=== PATIENT | male | born 1940 | race Caucasian/White ===

== ENCOUNTER 2018-01-30 12:57 | Outpatient (CLI) | payer MEDICARE ==
--- NOTE | 2018-01-30 13:17 | RAD ---
CHEST PA AND LATERAL: History: 77-year-old male with history of dyspnea. FINDINGS: Mild hyperinflation. Biapical pleural thickening with some minimal increased linear and interstitial markings bilaterally. In the right base and infrahilar region, these markings appear to be somewhat m ore prominent and certainly could represent a small focus of pneumonia. IMPRESSION: Hyperinflation and chronic lung changes. Slightly more focally prominent linear and parenchymal lara es in the right infrahilar region raising concern for minimal right lower lobe pneumonia or pneumonit is. No old exams for comparison. POS: [facility]
== END 2018-01-30 12:58 | disposition home or self-care (01) ==
LOC: RAD 12:57
PROVIDERS: ATTEND Internal Medicine Pulmonary Disease
DX: R06.00 Dyspnea, unspecified (principal)
CPT/HCPCS: 71046

== ENCOUNTER 2018-02-28 12:52 | Outpatient (CLI) | payer MEDICARE ==
--- NOTE | 2018-02-28 14:51 | RAD ---
2 VIEW CHEST: Date: 02/28/18 INDICATION: Dyspnea. COMPARISON: 01/30/18. FINDINGS: Hyperexpansion again noted. Parenchymal opacity in the right lung base is again seen which could repr esent infiltrate, although this is similar to the prior study and may represent chronic parenchymal c hange. The upper lung gill remain clear. No evidence of vascular congestion or edema. Heart size up per normal and stable. Moderate aortic calcification again noted. IMPRESSION: Continued parenchymal opacity in the right lung base, not significantly changed from 01/30/18. There are changes of COPD again noted as described. POS: [facility]
== END 2018-02-28 12:53 | disposition home or self-care (01) ==
LOC: RAD 12:52
PROVIDERS: ATTEND Internal Medicine Pulmonary Disease
DX: R06.00 Dyspnea, unspecified (principal); R91.8 Other nonspecific abnormal finding of lung field
CPT/HCPCS: 71046

== ENCOUNTER 2018-07-23 14:55 | Emergency (ER) | payer MEDICARE ==
[2018-07-23 15:36] LABS: #Basophils 0.1 thou/uL (0.0-0.2); #Eosinphils 0.2 thou/uL (0.0-0.7); #Lymphocytes 1.7 thou/uL (1.20-3.40); #Monocytes 0.7 thou/uL (0.11-0.59); #Neutrophils 4.9 thou/uL (1.40-6.50); %Eosinophils 2.6 % (0.0-10.0); %Lymphocytes 22.8 % (21.0-51.0); %Monocytes 8.7 % (0.0-10.0); Mean Corpuscular HGB CONC 32.7 g/dL (32.0-36.0); Mean Corpuscular Hemoglobin 30.7 pg (27.0-31.0); Mean Corpuscular Volume 93.8 fL (78.0-98.0); Platelet Count 269 thou/uL (130-400); RBC Distribution Width 12.6 % (11.5-14.5); Red Blood Cell (RBC) Count 4.87 mill/uL (4.70-6.10); White Blood Cell (WBC) Count 7.6 thou/uL (4.8-10.8)
[2018-07-23 15:52] LABS: ALT (SGPT) 38 U/L (8-55); AST (SGOT) 24 U/L (5-34); Albumin 4.3 g/dL (3.4-4.8); Alkaline Phosphatase 75 U/L (40-150); Anion Gap 13 mmol/L (10-20); BUN (Urea Nitrogen) 26 mg/dL (8.4-25.7); Bilirubin, Total 0.5 mg/dL (0.2-1.2); Calc. Creatinine Clearance 0 mL/min (70-130); Calcium 9.8 mg/dL (7.8-10.44); Carbon Dioxide 23 mmol/L (23-31); Chloride 107 mmol/L (98-107); Estimated GFR-MDRD 59; Globulin 3.1 g/dL (2.4-3.5); Glucose 116 mg/dL (83-110); Potassium 4.3 mmol/L (3.5-5.1); Protein, Total 7.4 g/dL (5.8-8.1); Sodium 139 mmol/L (136-145)
[2018-07-23 15:55] LABS: CKMB 1.9 ng/mL (0-6.6); Troponin I Less than 0.010 ng/mL (< 0.028)
--- NOTE | 2018-07-23 16:14 | CT ---
CT HEAD WITH AND WITHOUT IV CONTRAST CT ARTERIOGRAM BRAIN WITH IV CONTRAST AND 3D MIP IMAGING 07/23/18 HISTORY: Altered mental status. Difficult speech. FINDINGS: No comparison. There is no acute intracranial hemorrhage or infarct. Mild chronic ischemic small vessel disease with in the periventricular white matter. There is no mass effect or shift of midline structures. No abnor mal areas of contrast enhancement. Good contrast flow throughout each cerebral arterial system. There is calcification in the carotid si phons. No focal stenosis or aneurysm. [place] of [place] is intact. IMPRESSION: No acute intracranial abnormalities are demonstrated. Atherosclerosis. No acute vascular abnormalities are demonstrated. POS: [facility]
== END 2018-07-23 16:47 | disposition home or self-care (01) ==
LOC: SCSER 14:55
DX: G45.9 Transient cerebral ischemic attack, unspecified (principal); I25.10 Atherosclerotic heart disease of native coronary artery without angina pectoris; I10 Essential (primary) hypertension; F32.9 Major depressive disorder, single episode, unspecified; Z87.891 Personal history of nicotine dependence; Z79.899 Other long term (current) drug therapy; Z79.82 Long term (current) use of aspirin
CPT/HCPCS: 70496; 80053; 82553; 84484; 85025; 93005

== ENCOUNTER 2019-06-13 15:23 | Emergency (ER) | payer MEDICARE ==
[2019-06-13] MEDS ORDERED: methylPREDNISolone Sod Succ/PF 125 MG/2 ML VIAL ONE (15:34)
[2019-06-13 15:57] LABS: #Basophils 0.1 thou/uL (0.0-0.2); #Eosinphils 0.1 thou/uL (0.0-0.7); #Lymphocytes 1.3 thou/uL (1.20-3.40); #Monocytes 0.9 thou/uL (0.11-0.59); #Neutrophils 7.1 thou/uL (1.40-6.50); %Basophils 1.1 % (0.0-1.0); %Eosinophils 1.2 % (0.0-10.0); %Neutrophils 74.8 % (42.0-75.0); Hemoglobin 16.1 g/dL (14.0-18.0); Mean Corpuscular HGB CONC 32.8 g/dL (32.0-36.0); Mean Corpuscular Hemoglobin 31.8 pg (27.0-31.0); Mean Platelet Volume 5.7 fL (7.4-10.4); Platelet Count 339 thou/uL (130-400); RBC Distribution Width 12.9 % (11.5-14.5); Red Blood Cell (RBC) Count 5.06 mill/uL (4.70-6.10); White Blood Cell (WBC) Count 9.4 thou/uL (4.8-10.8)
[2019-06-13 16:13] LABS: ALT (SGPT) 26 U/L (8-55); AST (SGOT) 21 U/L (5-34); Albumin 4.3 g/dL (3.4-4.8); Alkaline Phosphatase 79 U/L (40-110); Anion Gap 16 mmol/L (10-20); BUN (Urea Nitrogen) 17 mg/dL (8.4-25.7); Bilirubin, Total 0.7 mg/dL (0.2-1.2); CK (CPK) 87 U/L (30-200); Calc. Creatinine Clearance 0 mL/min (70-130); Calcium 9.7 mg/dL (7.8-10.44); Carbon Dioxide 23 mmol/L (23-31); Chloride 105 mmol/L (98-107); Estimated GFR-MDRD 68; Globulin 3.3 g/dL (2.4-3.5); Glucose 98 mg/dL (83-110); Potassium 4.8 mmol/L (3.5-5.1); Protein, Total 7.6 g/dL (5.8-8.1); Sodium 139 mmol/L (136-145)
--- NOTE | 2019-06-13 16:19 | RAD ---
Exam: Chest 2 views: HISTORY: Dyspnea COMPARISON: 05/05/2019 FINDINGS: Fairly extensive bilateral increased linear and interstitial markings with hyperinflation and chronic appearing blunting of the costophrenic angles evidence for extensive chronic lung disease. Heart size is within normal limits. No confluent pneumonia. IMPRESSION: Hyperinflation and chronic lung changes, stable. No significant new process. Atherosclerosis of the a nyla.
== END 2019-06-13 16:47 | disposition home or self-care (01) ==
LOC: SCSER 15:23
DX: J20.9 Acute bronchitis, unspecified (principal); I49.9 Cardiac arrhythmia, unspecified; I10 Essential (primary) hypertension; J44.9 Chronic obstructive pulmonary disease, unspecified; F32.9 Major depressive disorder, single episode, unspecified; Z87.891 Personal history of nicotine dependence; Z79.899 Other long term (current) drug therapy; Z79.82 Long term (current) use of aspirin
CPT/HCPCS: 71046; 80053; 82550; 83880; 84484; 85025; 87804; 93005; 94760; 96374; J2930; J7620